=== PATIENT | female | born 1990 | race Caucasian/White ===

== ENCOUNTER 2023-03-18 13:30 | Emergency (ER) | payer BC ==
[~2023-03-18 13:30] MED LIST: Iopamidol 300 61% 100 ML VIAL FS ONE
[2023-03-18 14:16] LABS: Bilirubin Neg (Negative); Blood, Urine 10 (Negative); Clarity Clear (Clear); Glucose, Urine (Dipstick) Normal (Negative); Ketone, Urine 50 mg/dL (Negative); Leukocyte 25 (Negative); Nitrite Negative (Negative); Protein, Urine (Dipstick) 15 mg/dl (Neg-Trace); Urobilinogen Normal mg/dL (Less than 2)
[2023-03-18 14:22] LABS: Pregnancy Test - Urine (BHCG) Negative (Negative)
[2023-03-18 14:23] LABS: Pregu Control Background? CLEAR/WHITE (CLR/WHITE); Pregu Control Bar Appear? YES (CONTROL BAR)
[2023-03-18 14:26] LABS: Bacteria/HPF 1+ HPF (None Seen); Calcium Oxalate Crystals 2+ HPF (None Seen); Mucous/LPF 1+ LPF (<2+); RBC/HPF 0-3 HPF (0-3)
[2023-03-18 14:38] LABS: #Basophils 0.1 10x3/uL (0.0-0.2); #Eosinphils 0.2 10x3/uL (0.0-0.5); #Monocytes 0.9 10x3/uL (0.0-1.1); %Basophils 0.5 % (0.0-2.0); %Eosinophils 1.1 % (0.0-6.0); %Lymphocytes 11.8 % (18.0-47.0); %Neutrophils 80.3 % (40.0-75.0); Hemoglobin 14.4 g/dL (12.0-15.5); Mean Corpuscular Volume 91.6 fl (81.6-98.3); Mean Platelet Volume 9.7 fl (7.4-10.4); Platelet Count 327 10x3/uL (150-450); RBC Distribution Width 11.3 % (11.5-14.5); White Blood Cell (WBC) Count 14.9 10x3/uL (3.5-10.5)
[2023-03-18 14:41] LABS: ALT (SGPT) 12 U/L (8-55); AST (SGOT) 15 U/L (5-34); Albumin 4.4 g/dL (3.5-5.0); Alkaline Phosphatase 54 U/L (40-110); Anion Gap 13 mmol/L (10-20); BUN (Urea Nitrogen) 12 mg/dL (7.0-18.7); Bilirubin, Total 0.4 mg/dL (0.2-1.2); Calc. Creatinine Clearance 0 mL/min (70-130); Calcium 9.3 mg/dL (7.8-10.44); Carbon Dioxide 25 mmol/L (22-29); Chloride 106 mmol/L (98-107); Estimated GFR 99; Globulin 2.6 g/dL (2.4-3.5); Glucose 111 mg/dL (70-105); Potassium 3.9 mmol/L (3.5-5.1); Sodium 140 mmol/L (136-145)
[2023-03-18] MEDS ORDERED: Dicyclomine 20 MG/2 ML VIAL ONE (14:56)
[2023-03-18] MEDS ORDERED: Ondansetron ODT 4 MG TAB ONE (14:56)
== END 2023-03-18 18:06 | disposition home or self-care (01) ==
LOC: CSHERS 13:30
DX: K52.9 Noninfective gastroenteritis and colitis, unspecified (principal); E11.9 Type 2 diabetes mellitus without complications; E03.9 Hypothyroidism, unspecified; F17.210 Nicotine dependence, cigarettes, uncomplicated
CPT/HCPCS: 36416; 74177; 80053; 81003; 81015; 81025; 85025; 96372; Q0162; Q9967